=== PATIENT | male | born 1985 | race Caucasian/White ===

== ENCOUNTER → 2020-04-21 09:46 | Outpatient (CLI) | payer OTHER, SELFPAY ==
[2020-04-22 01:48] LABS: COVID19 Sendout Not Detected (Not Detect)
== END ==
PROVIDERS: Visit Provider Physician Assistant
DX: Z11.59 Encounter for screening for other viral diseases (principal)
CPT/HCPCS: 87635

== ENCOUNTER → 2020-04-24 10:13 | Outpatient (CLI) | payer OTHER, MEDICAID, SELFPAY ==
--- NOTE | 2020-04-24 | DI.NM.S_ITS ---
PROCEDURE: NM GERHARD PERF SPECT REST & STR Rest and exercise myocardial perfusion SPECT with gated imaging and ejection fraction RADIOPHARMACEUTICAL: 24.5 mCi Tc-99m sestamibi IV at rest and 25.9 mCi Tc-99m sestamibi IV at peak exercise. A two day-protocol was performed. INDICATIONS: Chest pain, unspecified TECHNIQUE: Radiopharmaceutical was injected at peak stress test, and also at rest. SPECT images were obtained. SPECT myocardial perfusion images were displayed in short axis, horizontal long axis, and vertical long axis views. Gated images were reviewed using [employer] software. COMPARISON: None. CARDIAC STRESS: A standard Bony treadmill exercise tolerance test was performed by the patient under the supervision of an attending staff. The patient exercised for 7 minutes and 14 seconds; functional aerobic impairment (JUSTIN) is +40%. Hemodynamic data: There is normal heart rate response to exercise stress. Patient achieved 98% of maximum predicted heart rate at peak exercise. Hypertension at rest (BP 140/100mmHg) and hypertensive response to exercise (BP 210/100mmHg). Symptoms: Patient had chest pain during exercise that resolved during recovery. EKG: No diagnostic EKG changes of ischemia; no ectopy. FINDINGS: Raw data: There is good myocardial labeling by radiotracer. No significant motion artifacts. Vtvh-em-nfykv ratio is 0.32 (normal is less than 0.38 for sestamibi tracer, and less than 0.50 for thallium tracer). Left ventricle function: Gated images demonstrate normal left ventricle wall thickening. No segmental wall motion abnormality. No transient ischemic dilation; TID is 0.79 (normal less than 1.3). The left ventricle resting end-diastolic volume is 130 mL. Left ventricle stress ejection fraction is 75%; normal values are above 45%. Myocardial perfusion: There is normal distribution of activity in the left and right ventricular myocardium. No fixed or reversible perfusion defects. IMPRESSION: Low risk, normal treadmill nuclear stress test. Hypertension at rest and hypertensive response to exercise. Non-diagnostic chest pain with exercise. 1) No perfusion evidence of ischemia or infarction. 2) Normal left ventricular size, wall motion, and systolic function (EF post stress 75%). 3) No ECG evidence of ischemia. 4) Non-diagnostic chest pain with exercise that resolved during recovery. 5) Reduced exercise tolerance (10.1 METs, JUSTIN +40%). Target heart rate achieved. 6) Hypertension at rest (BP 140/100mmHg) and hypertensive response to exercise (BP 210/100mmHg). 7) No prior nuclear stress test available for comparison. Dictated by: Ling Nolan MD on 04/27/2020 at 12:51 Approved by: Ling Nolan MD on 04/27/2020 at 12:57
== END ==
PROVIDERS: PCP Physician Assistant; Referring Provider Physician Assistant; Visit Provider Physician Assistant
DX: R07.9 Chest pain, unspecified (principal)
CPT/HCPCS: 78452; 93017; A9502

== ENCOUNTER 2021-06-07 13:48 | Emergency (ER) | payer OTHER, MEDICAID, SELFPAY ==
[2021-06-07] VITALS (10 sets, daily range): BP systolic 131–148; BP diastolic 75–84; PULSE 61–88; RESP 17–21; TEMP 36.9; O2SAT 90–98
--- NOTE | 2021-06-07 13:59 | DI.RAD.S_ITS ---
PROCEDURE: XR CHEST 1V INDICATIONS: weakness, fatigue TECHNIQUE: One view of the chest was acquired. COMPARISON: None. FINDINGS: Surgical changes and devices: None. Lungs and pleura: Lungs are clear. No pleural effusions or pneumothorax. Mediastinum: Mediastinal contours appear normal. Heart size is normal. Bones and chest wall: No suspicious bony lesions. Overlying soft tissues appear unremarkable. IMPRESSION: No acute cardiopulmonary disease process. Dictated by: Kelsea Tidwell MD, PhD on 06/07/2021 at 14:35 Approved by: Kelsea Tidwell MD, PhD on 06/07/2021 at 14:35
--- NOTE | 2021-06-07 14:03 | ED_ITS ---
HPI - Arrhythmia/Palpitations General Chief Complaint: Arrhythmia/Palpitations Stated Complaint: Low pulse/heart rate, dizzy Time Seen by Provider: 06/07/21 13:50 History of Present Illness HPI narrative: 35-year-old male nonsmoker without chronic medical problems presents with the chief complaint of an episode of low heart rate and dizziness this morning. He went to bed in his normal state last night and woke up this morning, went to the bathroom and then back to bed and felt dizzy. His is an MA and took his pulse which was reported to be in the 40s. He denies any history of the same. He denies any dietary or medication change. He is not currently taking any prescription medications. He denies any alcohol or street drugs. He denies any recent illness such as fever or chills. He has had no nausea, vomiting or diarrhea. He currently is feeling a bit lightheaded. Related Data Home Medications Medication Instructions Recorded Confirmed No Known Home Medications 06/07/21 06/07/21 Allergies Allergy/AdvReac Type Severity Reaction Status Date / Time meloxicam Allergy Verified 06/07/21 14:20 tramadol Allergy Verified 06/07/21 14:20 Review of Systems Review of Systems Narrative: GENERAL: Denies chills, fatigue, malaise, fever, sweats. HEENT: Denies sinus pain, ear pain, sore throat, difficulty swallowing, dizziness. RESPIRATORY: Denies dyspnea, cough, wheezing, hemoptysis, sputum. CARDIOVASCULAR: See HPI GASTROINTESTINAL: Denies nausea, vomiting, abdominal pain, diarrhea, constipation, melena. : Denies dysuria, frequency, incontinence, hematuria, urinary retention. MUSCULOSKELETAL: denies weakness, joint pain, or bony pain SKIN: Denies rash, skin lesions, or other NEUROLOGIC: Denies weakness, headache, numbness, change in speech, confusion, seizures, incoordination. PSYCHIATRIC: No concerning psychosocial issues. 12 point review of systems is negative except for those stated above Patient History Social History Smoking Status: Never smoker Exam Narrative Exam Narrative: GENERAL: [35 year old patient appears stated age. Well-developed patient, in mild distress. HEAD: Atraumatic. Normocephalic. EYES: Pupils equal round and reactive. Extraocular motions intact. No scleral icterus. No injection or drainage. ENT: Nose without bleeding, purulent drainage. Throat without erythema, tonsillar hypertrophy or exudate. Airway patent. NECK: Trachea midline. Non tender CARDIOVASCULAR: Regular rate and rhythm without murmurs, gallops, or rubs. RESPIRATORY: Clear to auscultation. Breath sounds equal bilaterally. No wheezes, rales, or rhonchi. GASTROINTESTINAL: Abdomen soft, non-tender, nondistended. EXTREMITIES: No edema or joint tenderness. BACK: Nontender without deformity or crepitance. No flank tenderness. NEURO: AOx3. SKIN: No rash or erythema of visible areas Initial Vital Signs Initial Vital Signs: Vital Signs Temperature 98.4 F 06/07/21 13:50 Pulse Rate 74 06/07/21 13:50 Respiratory Rate 17 06/07/21 13:50 Blood Pressure 148/84 H 06/07/21 13:50 Pulse Oximetry 97 06/07/21 13:50 Course Orders Ordered: Discontinued Medications Sodium Chloride (Normal Saline 0.9%) 1,000 mls @ 1,000 mls/hr IV BOLUS ONE Stop: 06/07/21 14:58 Last Infusion: 06/07/21 15:20 Dose: 0 mls/hr Documented by: Admin: 06/07/21 14:24 Dose: 1,000 mls/hr Documented by: GUZMAN Vital Signs Vital signs: Vital Signs - 8 hr 06/07/21 13:50 06/07/21 13:52 06/07/21 13:53 Temperature 98.4 F Pulse Rate 74 88 71 Pulse Rate [Orthostatic Lying] Pulse Rate [Orthostatic Sitting] Pulse Rate [Orthostatic Standing] Respiratory Rate 17 Blood Pressure 148/84 H 148/84 H Blood Pressure [Orthostatic Lying] Blood Pressure [Orthostatic Sitting] Blood Pressure [Orthostatic Standing] Pulse Oximetry 97 90 L 98 06/07/21 14:00 06/07/21 14:30 06/07/21 14:42 Temperature Pulse Rate 67 65 61 Pulse Rate [Orthostatic Lying] Pulse Rate [Orthostatic Sitting] Pulse Rate [Orthostatic Standing] Respiratory Rate 19 20 19 Blood Pressure 134/77 Blood Pressure [Orthostatic Lying] Blood Pressure [Orthostatic Sitting] Blood Pressure [Orthostatic Standing] Pulse Oximetry 98 97 98 06/07/21 14:44 06/07/21 14:45 06/07/21 14:46 Temperature Pulse Rate 73 70 Pulse Rate [Orthostatic Lying] 61 Pulse Rate [Orthostatic Sitting] 73 Pulse Rate [Orthostatic Standing] 62 Respiratory Rate 18 18 Blood Pressure 135/80 133/82 Blood Pressure [Orthostatic Lying] 134/77 Blood Pressure [Orthostatic Sitting] 135/80 Blood Pressure [Orthostatic Standing] 133/82 Pulse Oximetry 98 98 06/07/21 15:00 Temperature Pulse Rate 62 Pulse Rate [Orthostatic Lying] Pulse Rate [Orthostatic Sitting] Pulse Rate [Orthostatic Standing] Respiratory Rate 21 Blood Pressure 131/75 Blood Pressure [Orthostatic Lying] Blood Pressure [Orthostatic Sitting] Blood Pressure [Orthostatic Standing] Pulse Oximetry 97 MDM - Arrhythmia/Palpitations Lab Data Result diagrams: 06/07/21 14:00 06/07/21 14:00 Labs: Lab Results 06/07/21 06/07/21 06/07/21 Range/Units 14:00 14:00 14:00 WBC 6.9 (4.5-11.0) X10^3/uL RBC 5.04 (4.5-5.9) X10^6/uL Hgb 15.1 (13.5-17.5) g/dL Hct 43.7 (41-53) % MCV 86.6 (80-100) fL MCH 29.9 (26-34) PG MCHC 34.6 (30-36) % RDW 13.3 (11.6-14.8) % Plt Count 199 (150-400) X10^3/uL Neut % (Auto) 53.6 (50-75) % Lymph % (Auto) 37.1 (25-40) % Pettis % (Auto) 6.4 (3-14) % Eos % (Auto) 2.0 (2-4) % Baso % (Auto) 0.9 (0-2) % Neut # (Auto) 3700 (3957-5085) /uL Lymph # (Auto) 2600 (2871-1588) /uL Pettis # (Auto) 400 (0-900) /uL Eos # (Auto) 100 (0-450) /uL Baso # (Auto) 100 (0-100) /uL Sodium 140 (137-145) mmol/L Potassium 4.3 (3.4-5.1) mmol/L Chloride 105 (98-107) mmol/L Carbon Dioxide 31 (22-32) mmol/L BUN 14 (9-20) mg/dL Creatinine 0.90 (0.66-1.25) mg/dL Estimated GFR > 60.0 (>60) mL/min BUN/Creatinine Ratio 15.6 (6-22) Glucose 100 (70-100) mg/dL Calcium 9.4 (8.4-10.2) mg/dL Magnesium 2.1 (1.6-2.3) mg/dL Total Bilirubin 0.7 (0.2-1.3) mg/dL AST 52 (17-59) IU/L ALT 114 H (<50) IU/L Alkaline Phosphatase 80 (38-126) U/L Total Creatine Kinase 57 (55-170) U/L CK-MB (CK-2) TNP CK-MB (CK-2) Rel Index TNP Troponin I < 0.012 (0.01-0.034) ng/mL Total Protein 7.7 (6.3-8.2) g/dL Albumin 4.5 (3.5-5.0) g/dL Globulin 3.2 (1.7-4.1) g/dL Albumin/Globulin Ratio 1.4 (1.0-2.8) TSH 1.37 (0.47-4.68) uIU/mL Imaging Data Chest x-ray: Radiologist's Impresson: [address] [address] XRay Report Signed Patient: Amandeep Regalado MR#: [id number] : 1985 Acct:[id number] Age/Sex: 35 / M Date of Service: 06/07/21 Loc: ED Accession Number: [id number] ?? Procedure: XR chest 1V Ordering Provider: Freeman Krishna D.O. PROCEDURE:? XR CHEST 1V ? INDICATIONS:? weakness, fatigue ? TECHNIQUE:? One view of the chest was acquired.? ? COMPARISON:? None. ? FINDINGS:? ? Surgical changes and devices:? None.? ? Lungs and pleura:? Lungs are clear.? No pleural effusions or pneumothorax.? ? Mediastinum:? Mediastinal contours appear normal.? Heart size is normal.? ? Bones and chest wall:? No suspicious bony lesions.? Overlying soft tissues appear unremarkable.? ? IMPRESSION:? No acute cardiopulmonary disease process. ? ? Dictated by: Kelsea Tidwell MD, PhD on 06/07/2021 at 14:35 ? ? Approved by: Kelsea Tidwell MD, PhD on 06/07/2021 at 14:35 ? ECG Data Interpretation: EKG is normal sinus rhythm rate [ 61] and free of any signs of ischemia or ectopy. No ST segmental elevation or depression. No T wave inversions MDM Narrative Medical decision making narrative: Patient with reported episode of bradycardia earlier today. EKG shows sinus rhythm in the 60s with no evidence of block. Physical exam and labs also very reassuring. Patient given return precautions, encouraged to follow up with his provider, possible need for ZIO patch or similar. Questions answered to his apparent satisfaction Discharge Plan Departure Patient Disposition: Home Clinical Impression: Bradycardia Instructions: DI for Bradycardia Activity Restrictions/Additional Instructions: *You have been diagnosed with [mild bradycardia with very reassuring physical exam, lab work and EKG *What to do: *Please continue to take your regular medications as directed. [ ] New medication prescriptions sent to your pharmacy: [ ] [ ] New medication written as a paper prescription [x ] No new medications given *Please follow up with your primary care provider in 2-3 days, call for an appointment. Let them know you were seen in the Emergency Department and that we ask that you be seen in follow up. We will electronically transmit a record of today's note if your PCP is in our system *If you do not have a primary care provider please contact the [facility] Resource line at [phone]. They will ask some questions about your medical history and help get you set up with a doctor in the community. *Return to Emergency Department if you should have any new, worsening or concerning symptoms, such as [chest pain, trouble breathing, passing out, or other bothersome symptoms Prescriptions: No Action No Known Home Medications RF: 0 Referrals: Freeman Krishna DO [Emergency Provider] - Suzanne Clay PA-C [Primary Care Provider] - Osito Rae MD [Physician] -
[2021-06-07 14:12] LABS: Add Manual Diff / Slide Review NO; Basophils Absolute Auto 100 /uL (0-100); Basophils Percent Auto 0.9 % (0-2); Eosinophils Absolute Auto 100 /uL (0-450); Hematocrit 43.7 % (41-53); Hemoglobin 15.1 g/dL (13.5-17.5); Lymphocytes Absolute Auto 2600 /uL (1100-4500); Lymphocytes Percent Auto 37.1 % (25-40); Mean Corpuscular HGB Conc 34.6 % (30-36); Mean Corpuscular Hemoglobin 29.9 PG (26-34); Mean Corpuscular Volume 86.6 fL (80-100); Monocytes Absolute Auto 400 /uL (0-900); Monocytes Percent Auto 6.4 % (3-14); Neutrophils Absolute Auto 3700 /uL (1500-7000); Neutrophils Percent Auto 53.6 % (50-75); Platelet Count 199 X10^3/uL (150-400); Red Blood Cell Count 5.04 X10^6/uL (4.5-5.9); Red Cell Distribution Width 13.3 % (11.6-14.8); White Blood Cell Count 6.9 X10^3/uL (4.5-11.0)
[2021-06-07] MEDS: SODIUM CHLORIDE 0.9% 1,000 ML 1000 ML IV (14:24)
[2021-06-07 14:26] LABS: Alanine Aminotransferase 114 IU/L (<50); Albumin 4.5 g/dL (3.5-5.0); Albumin Globulin Ratio 1.4 (1.0-2.8); Alkaline Phosphatase 80 U/L (38-126); Aspartate Aminotransferase 52 IU/L (17-59); BUN Creatinine Ratio 15.6 (6-22); Bilirubin Total 0.7 mg/dL (0.2-1.3); Blood Urea Nitrogen 14 mg/dL (9-20); Calcium 9.4 mg/dL (8.4-10.2); Carbon Dioxide 31 mmol/L (22-32); Chloride 105 mmol/L (98-107); Creatine Kinase 57 U/L (55-170); Estimated Glomerular Filt Rate > 60.0 mL/min (>60); Globulin 3.2 g/dL (1.7-4.1); Glucose 100 mg/dL (70-100); HEMOLYSIS < 15 (0-50); Magnesium 2.1 mg/dL (1.6-2.3); Potassium 4.3 mmol/L (3.4-5.1); Sodium 140 mmol/L (137-145); Total Protein 7.7 g/dL (6.3-8.2)
[2021-06-07 14:36] LABS: Troponin I < 0.012 ng/mL (0.01-0.034)
[2021-06-07 15:18] LABS: Thyroid Stimulating Hormone 1.37 uIU/mL (0.47-4.68)
== END 2021-06-07 15:28 | disposition home or self-care (01) ==
PROVIDERS: Emergency Provider Emergency Medicine; PCP Physician Assistant
DX: R00.1 Bradycardia, unspecified (principal); R42 Dizziness and giddiness
CPT/HCPCS: 36415; 71045; 80053; 82550; 83735; 84443; 84484; 85025; 93005; 96360; 99284

== ENCOUNTER → 2022-08-19 08:30 | Outpatient (CLI) | payer OTHER, SELFPAY ==
[2022-08-19 08:54] LABS: Add Manual Diff / Slide Review NO; Basophils Absolute Auto 100 /uL (0-100); Basophils Percent Auto 0.8 % (0-2); Eosinophils Absolute Auto 100 /uL (0-450); Eosinophils Percent Auto 2.2 % (2-4); Hematocrit 42.2 % (41-53); Hemoglobin 14.8 g/dL (13.5-17.5); Lymphocytes Absolute Auto 2300 /uL (1100-4500); Mean Corpuscular Hemoglobin 30.1 PG (26-34); Monocytes Absolute Auto 500 /uL (0-900); Monocytes Percent Auto 7.2 % (3-14); Neutrophils Absolute Auto 3500 /uL (1500-7000); Neutrophils Percent Auto 53.8 % (50-75); Platelet Count 181 X10^3/uL (150-400); Red Blood Cell Count 4.91 X10^6/uL (4.5-5.9); White Blood Cell Count 6.5 X10^3/uL (4.5-11.0)
[2022-08-19 09:33] LABS: Hemoglobin A1C% w Est Avg Glu 5.5 % (4.0-6.0)
[2022-08-19 09:59] LABS: TSH w/ Reflex to FT4 1.84 uIU/mL (0.47-4.68)
[2022-08-19 12:15] LABS: Alanine Aminotransferase 50 IU/L (<50); Albumin 4.2 g/dL (3.5-5.0); Albumin Globulin Ratio 1.6 (1.0-2.8); Alkaline Phosphatase 78 U/L (38-126); Aspartate Aminotransferase 24 IU/L (17-59); BUN Creatinine Ratio 18.6 (6-22); Bilirubin Total 0.5 mg/dL (0.2-1.3); Blood Urea Nitrogen 16 mg/dL (9-20); Calcium 8.8 mg/dL (8.4-10.2); Carbon Dioxide 27 mmol/L (22-32); Chloride 105 mmol/L (98-107); Cholesterol 200 mg/dL (140-199); Estimated Glomerular Filt Rate > 60 mL/min (>60); Globulin 2.6 g/dL (1.7-4.1); Glucose 101 mg/dL (70-100); HDL Cholesterol 26 mg/dL (40-60); Potassium 4.1 mmol/L (3.4-5.1); Sodium 139 mmol/L (137-145); Total Protein 6.8 g/dL (6.3-8.2)
[2022-08-19 12:23] LABS: HEMOLYSIS < 15 (0-50)
[2022-08-19 12:25] LABS: Triglycerides 645 mg/dL (35-150)
[2022-08-19 17:01] LABS: Testosterone 115 ng/dL (132-813)
== END ==
PROVIDERS: PCP Family Medicine; Referring Provider Family Medicine; Visit Provider Family Medicine
DX: E29.1 Testicular hypofunction (principal)
CPT/HCPCS: 36415; 80053; 80061; 83036; 84403; 84443; 85025